=== PATIENT | male | born 1960 | race Caucasian/White ===

== ENCOUNTER → 2017-10-04 | Outpatient (CLI) | payer OTHER | LOC: M.RAD 08:57 | DX: R05 Cough (principal) ==

== ENCOUNTER → 2017-10-18 | Outpatient (CLI) | payer OTHER | LOC: M.RAD 16:10 | DX: J15.8 Pneumonia due to other specified bacteria (principal) ==

== ENCOUNTER 2020-01-27 20:53 | Emergency (ER) | payer OTHER ==
[~2020-01-27] VITALS: Ht 182.9 cm; Wt 81.7 kg
[2020-01-27] MEDS ORDERED: AUGMENTIN 875-1 EACH PO (21:28)
[2020-01-27] MEDS ORDERED: TYLENOL WITH CO1 TA1 PO (21:29)
[2020-01-27 22:24] VITALS: BP 127/78
== END 2020-01-27 22:28 | disposition home or self-care (01) ==
LOC: M.ERS 20:53
DX: S01.412A Laceration without foreign body of left cheek and temporomandibular area, initial encounter (principal); W54.0XXA Bitten by dog, initial encounter; Y93.89 Activity, other specified; Y92.89 Other specified places as the place of occurrence of the external cause; Y99.8 Other external cause status

== ENCOUNTER → 2020-03-21 | Outpatient (CLI) | payer OTHER ==
[~2020-03-21] MED LIST: AUGMENTIN 875-1 EACH PO; TYLENOL WITH CO1 TA1 PO
== END ==
LOC: M.CT 15:34
PROVIDERS: ATTEND Internal Medicine
DX: N20.0 Calculus of kidney (principal); K86.1 Other chronic pancreatitis; R10.13 Epigastric pain; R63.4 Abnormal weight loss; N28.1 Cyst of kidney, acquired; D73.89 Other diseases of spleen

== ENCOUNTER → 2020-04-08 | Outpatient (CLI) | payer OTHER | LOC: M.LAB 16:40 | PROVIDERS: ATTEND Internal Medicine | DX: Z01.812 Encounter for preprocedural laboratory examination (principal); K90.0 Celiac disease; Z11.59 Encounter for screening for other viral diseases ==